=== PATIENT | female | born 1980 | race Caucasian/White ===

== ENCOUNTER 2021-04-22 16:19 | Inpatient (IN) ==
[2021-04-27] MEDS ORDERED: PROMETHAZINE 25 MG TABLET PO PRN (12:43)
[2021-04-27] MEDS ORDERED: DOCUSATE SODIUM 100 MG CAPSULE PO PRN ×2 (12:43→13:05)
[2021-04-27] MEDS ORDERED: guaiFENesin/DM ER 600-30 MG TABLET PO PRN (12:43)
[2021-04-27] MEDS ORDERED: MAGNESIUM SULF RIDER 2 GM/50 ML PREMIX IV PRN (12:43)
[2021-04-27] MEDS ORDERED: ALUMINUM/MAGNES/SIMETH MAX STR 30 ML UDCUP PO PRN (12:43)
[2021-04-27] MEDS ORDERED: diphenhydrAMINE CAP 25 MG CAPSULE PO PRN (12:43)
[2021-04-27] MEDS ORDERED: MORPHINE 2 MG/1 ML SYRINGE IV PRN (12:43)
[2021-04-27] MEDS ORDERED: hydrALAZINE 20 MG/1 ML VIAL IV PRN (12:43)
[2021-04-27] MEDS ORDERED: MAGNESIUM SULF RIDER 4 GM/100 ML PREMIX IV PRN (12:43)
[2021-04-27] MEDS ORDERED: ZALEPLON 5 MG CAPSULE PO PRN (12:43)
[2021-04-27] MEDS ORDERED: ACETAMINOPHEN 325 MG TABLET PO PRN (12:43)
[2021-04-27] MEDS ORDERED: ONDANSETRON 4 MG/2 ML VIAL IV PRN (12:43)
[2021-04-27] MEDS ORDERED: HEPARIN DRIP 25,000 UNITS/500 ML PREMIX IV SCH (15:00)
[2021-04-27 15:19] LABS: PT Patient Result 10.9 SECS (10.5-12.0)
[2021-04-27] MEDS ORDERED: MORPHINE 30 MG PO SCH (21:00)
[2021-04-27] MEDS ORDERED: MORPHINE PO SCH (21:00)
[2021-04-28 04:41] LABS: Basophils # 0.1 10*3/uL (0.0-0.2); Eosinophils # 0.1 10*3/uL (0.0-0.87); Eosinophils % 2.5 % (0.00-10.9); Hematocrit 39.6 VOL% (35.7-47.0); Hemoglobin 13.3 GM/DL (12.0-16.0); Immature Granulocytes % 0.4 %; Immature Granulocytes Absolute 0.02 #; Lymphocytes # 2.3 10*3/uL (1.4-4.0); Lymphocytes % 44.1 % (21.3-54.2); Mean Corpuscular HGB Conc 33.6 GM/DL (32-36); Mean Corpuscular Volume 97.8 FL (87-102); Mean Platelet Volume 12.1 FL (9.6-12.0); Monocytes % 8.2 % (1.7-12.7); Neutrophils % 43.8 % (38.7-73.9); Platelet Count 212 T/CUMM (130-400); Red Blood Count 4.05 MC/CUMM (3.8-5.5); White Blood Count 5.2 T/CUMM (4-12)
[2021-04-28 05:09] LABS: Albumin 3.6 G/DL (3.4-5.0); Bilirubin,Total 0.7 MG/DL (0.20-1.00); Osmolality,Calculated 275.7 MOS/KG (273-304); Potassium 4.2 MMOL/L (3.5-5.1); Total Protein 7.5 G/DL (6.4-8.2)
[2021-04-28] MEDS ORDERED: INDOCYANINE GREEN 25 MG VIAL IV ONE (06:00)
[2021-04-28] MEDS ORDERED: METOPROLOL SUCCINATE XL 25 MG TABLET PO SCH (09:00)
[2021-04-28] MEDS ORDERED: PANTOPRAZOLE 40 MG TABLET PO SCH (09:00)
[2021-04-28] MEDS ORDERED: ESTRADIOL 1 MG TABLET PO SCH (09:00)
[2021-04-28] MEDS ORDERED: BUPIVACAINE MPF 0.25% 30 ML VIAL ONE (10:47)
[2021-04-28] MEDS ORDERED: LIDOCAINE 1%/EPI INJ 20 ML VIAL ONE (10:47)
[2021-04-28] MEDS ORDERED: TISSUE ADHESIVE 1 EACH APPLICATOR TOP ONE (10:47)
[2021-04-28] MEDS ORDERED: fentaNYL 100 MCG/2 ML VIAL ONE (10:58)
[2021-04-28] MEDS ORDERED: MIDAZOLAM 2 MG/2 ML VIAL ONE (10:58)
[2021-04-28] MEDS ORDERED: LACTATED RINGERS 1,000 ML IV SCH (11:00)
[2021-04-28] MEDS ORDERED: propofoL 200 MG/20 ML VIAL IV ONE (11:35)
[2021-04-28] MEDS ORDERED: PHENYLEPHRINE 1 MG/10 ML SYRINGE IV ONE (11:35)
[2021-04-28] MEDS ORDERED: DEXAMETHASONE 4 MG/1 ML VIAL ONE (11:35)
[2021-04-28] MEDS ORDERED: LIDOCAINE 2% 5 ML VIAL ONE (11:35)
[2021-04-28] MEDS ORDERED: SEVOFLURANE 1 UNIT/15 MINUTE INH ONE (11:35)
[2021-04-28] MEDS ORDERED: ONDANSETRON 4 MG/2 ML VIAL ONE (11:35)
[2021-04-28] MEDS ORDERED: ROCURONIUM 50 MG/5 ML VIAL IV ONE (11:35)
[2021-04-28] MEDS ORDERED: KETOROLAC 30 MG/1 ML VIAL ONE (11:35)
[2021-04-28] MEDS ORDERED: GLYCOPYRROLATE 0.4 MG/2 ML VIAL ONE (11:54)
[2021-04-28] MEDS ORDERED: NEOSTIGMINE 10 MG/10 ML VIAL ONE (11:54)
[2021-04-28] MEDS: HYDROmorphone 2 MG/1 ML VIAL IV PRN ×4 (12:29→12:51)
[2021-04-28 13:19] VITALS: BP 129/71
== END 2021-04-28 17:54 | disposition home or self-care (01) | DRG 418 ==
LOC: N.3E 04-27 13:56 → PREOBSVTOIN 04-28 09:17
PROVIDERS: ADMIT Internal Medicine Interventional Cardiology; ATTEND Internal Medicine Interventional Cardiology